=== PATIENT | male | born 1950 | race Hispanic/Latino ===

== ENCOUNTER 2017-12-26 21:32 | Emergency (ER) | payer MEDICARE ==
[~2017-12-26] VITALS: Ht 170.2 cm; Wt 74.8 kg
[2017-12-26] MEDS ORDERED: KETOROLAC TROMETHAMINE 30 MG/ML VIAL IV STA (21:45)
[2017-12-26] MEDS ORDERED: SODIUM CHLORIDE 0.9% 1000ML 1,000 ML IV STA (21:45)
[2017-12-26] MEDS ORDERED: SODIUM CHLORIDE 0.9% 1000ML 1,000 ML ONE (21:46)
[2017-12-26 22:19] LABS: BASOPHILS % 0.5 % (0.0-1.0); EOSINOPHILS # (AUTO) 0.6 (0.0-0.4); HEMATOCRIT 39.6 % (38.2-49.6); HEMOGLOBIN 14.4 g/dL (14.0-18.0); LYMPHOCYTES # (AUTO) 2.2 (1.0-3.2); LYMPHOCYTES % 29.5 % (18.0-39.1); MEAN CORPUSCULAR HEMOGLOBIN 29.7 pg (28-32); MEAN CORPUSCULAR HGB CONC 36.4 g/dL (31-35); MEAN CORPUSCULAR VOLUME 81.6 fL (81-99); MONOCYTES # (AUTO) 0.8 (0.2-0.8); MONOCYTES % 10.5 % (4.4-11.3); NEUTROPHILS # (AUTO) 3.9 (2.1-6.9); NEUTROPHILS % 51.1 % (38.7-80.0); PLATELET COUNT 179 x10e3/uL (140-360); RED BLOOD COUNT 4.85 x10e6/uL (4.3-5.7); RED CELL DISTRIBUTION WIDTH 12.9 % (11.7-14.4)
--- NOTE | 2017-12-26 22:22 | Diagnostic Imaging Report ---
CHEST SINGLE (PORTABLE), 12/26/2017 9:45 PM Technique: CHEST SINGLE (PORTABLE) Comparison: None available. Clinical history: Chest pain Findings: See Impression Impression: 1. Mildly enlarged cardiac silhouette, accentuated by technique. 2. Peripheral left lung opacity suspicious for mass in the absence of signs/symptoms of infection. Recommend CT chest for better evaluation. 3. No pleural effusion or pneumothorax. Signed by: Dr Evi Arellano MD on 12/26/2017 10:18 PM
[2017-12-26 22:35] LABS: ALBUMIN 3.9 g/dL (3.5-5.0); ALBUMIN/GLOBULIN RATIO 1.2 (0.8-2.0); ANION GAP 16.6 mmol/L (8-16); CALCIUM 9.5 mg/dL (8.4-10.2); CREATININE, SERUM 1.25 mg/dL (0.72-1.25); POTASSIUM 3.6 mmol/L (3.5-5.1)
[2017-12-26 22:41] LABS: CREATINE KINASE MB 1.1 ng/mL (0-5.0)
[2017-12-26 23:49] LABS: BILIRUBIN,URINE NEGATIVE (NEGATIVE); CLARITY,URINE CLEAR (CLEAR); COLOR,URINE YELLOW (YELLOW); KETONES,URINE NEGATIVE (NEGATIVE); NITRITE,URINE NEGATIVE (NEGATIVE); PROTEIN,URINE DIPSTICK NEGATIVE (NEGATIVE); URINE UROBILINOGEN 0.2 mg/dL (0.2 - 1)
[2017-12-26 23:51] LABS: EPITHELIAL CELLS,URINE RARE /LPF; LEUKOCYTE ESTERASE ,URINE TRACE (NEGATIVE); MUCUS,URINE MODERATE (RARE); RBC,URINE 0-5 /HPF (0-5)
--- NOTE | 2017-12-27 01:07 | Diagnostic Imaging Report ---
EXAM: CT CHEST WO DATE: 12/27/2017 12:01 AM INDICATION: \S\? PERIPH LEFT LUNG MASS \[id number] \[id number] COMPARISON: None TECHNIQUE: Multidetector CT scanning of the chest was performed. Coronal and sagittal multiplanar reformations were obtained. IV Contrast: 0 ml Isovue 370/300 FINDINGS: LUNGS AND PLEURA: Mild paraseptal emphysema and biapical pleural-parenchymal scarring. Large lobular/spiculated mass of the lingula measuring 3.8 x 2.7 x 4.1 cm abutting the left major fissure and adjacent pleural surface. Indeterminate 7 8-mm left lower lobe nodule (image 97) and left basilar 3 to 4 mm subpleural nodule (image 106). No effusions or pneumothorax. HEART, MEDIASTINUM, VESSELS: Borderline heart size with coronary artery and aortic calcifications. No pericardial effusion. There are several small rounded nodes, the largest measuring 1.3 cm of the AP window on image 42 and superior mediastinal prevascular node measuring 1.1 cm on image 30 and left hilar node measuring 9 mm on image 53. UPPER ABDOMEN: Moderate hiatal hernia.. MUSCULOSKELETAL: No acute findings. IMPRESSION: 1. Left upper lobe mass most compatible with primary lung malignancy. 2. Small rounded mediastinal and left hilar nodes could be metastatic. 3. Two nonspecific left lower lobe nodules. Signed by: Dr Evi Arellano MD on 12/27/2017 1:03 AM
[2017-12-27 01:32] VITALS: BP 165/91
== END 2017-12-27 01:47 | disposition home or self-care (01) ==
LOC: ER 21:32
DX: R52 Pain, unspecified (principal); M79.1 Myalgia; M62.838 Other muscle spasm; C34.12 Malignant neoplasm of upper lobe, left bronchus or lung; I10 Essential (primary) hypertension; I50.9 Heart failure, unspecified; E78.5 Hyperlipidemia, unspecified
CPT/HCPCS: 36415; 71045; 71250; 80053; 81001; 82550; 82553; 84484; 85025; 93005; 99284; J1885; J7030

== ENCOUNTER 2020-07-25 11:45 | Observation (INO) | payer MEDICARE ==
[~2020-07-25] VITALS: Ht 175.3 cm; Wt 71.7 kg
[2020-07-25] MEDS: SODIUM CHLORIDE 0.9% 1000ML 1,000 ML IV SCH ×2 (01:38→17:54)
[2020-07-25] MEDS ORDERED: SODIUM CHLORIDE 0.9% 1000ML 1,000 ML IV STA (11:47)
[2020-07-25] MEDS ORDERED: ONDANSETRON HCL INJ 2MG/ML 2ML 2 MG/ML VIAL IV STA (11:47)
[2020-07-25] MEDS ORDERED: MORPHINE SULFATE INJ 4 MG/ML INJ 1ML IV PRN (12:00)
[2020-07-25 12:08] LABS: BASOPHILS % 0.3 % (0.0-1.0); EOSINOPHILS # (AUTO) 0.3 (0.0-0.4); EOSINOPHILS % 5.3 % (0.0-6.0); HEMATOCRIT 37.8 % (38.2-49.6); HEMOGLOBIN 13.2 g/dL (14.0-18.0); LYMPHOCYTES % 33.3 % (18.0-39.1); MEAN CORPUSCULAR HEMOGLOBIN 31.4 pg (28-32); MEAN CORPUSCULAR HGB CONC 34.9 g/dL (31-35); MEAN CORPUSCULAR VOLUME 89.8 fL (81-99); MONOCYTES # (AUTO) 0.7 (0.2-0.8); MONOCYTES % 10.8 % (4.4-11.3); NEUTROPHILS % 49.8 % (38.7-80.0); PLATELET COUNT 183 x10e3/uL (140-360); RED BLOOD COUNT 4.21 x10e6/uL (4.3-5.7); RED CELL DISTRIBUTION WIDTH 12.7 % (11.7-14.4)
[2020-07-25 12:30] LABS: ALANINE AMINOTRANSFERASE 26 IU/L (0-55); ALBUMIN/GLOBULIN RATIO 1.3 (0.8-2.0); ALKALINE PHOSPHATASE 46 IU/L (40-150); ANION GAP 16.4 mmol/L (8-16); BLOOD UREA NITROGEN 10 mg/dL (7-26); BUN/CREATININE RATIO 11 (6-25); CARBON DIOXIDE 28 mmol/L (22-29); CHLORIDE 97 mmol/L (98-107); CREATINE KINASE 49 IU/L (30-200); CREATININE, SERUM 0.94 mg/dL (0.72-1.25); EST GLOMERULAR FILTRATION RATE > 60 ML/MIN (60-); GLUCOSE 121 mg/dL (74-118); POTASSIUM 3.4 mmol/L (3.5-5.1); SODIUM 138 mmol/L (136-145)
[2020-07-25] MEDS ORDERED: IOPAMIDOL 370 MG/ML 200 ML INFUS..BTL INJ ONE (12:45)
[2020-07-25] MEDS ORDERED: SODIUM CHLORIDE 0.9% 50ML 50 ML ONE (12:45)
[2020-07-25 14:22] VITALS: BP 92/61
[2020-07-25 17:57] VITALS: BP 92/61
[2020-07-25] MEDS ORDERED: FUROSEMIDE40 MG PO (19:49)
[2020-07-25] MEDS ORDERED: AMIODARONE HCL100 MG PO (19:49)
[2020-07-25] MEDS ORDERED: OMEPRAZOLE40 MG PO (19:49)
[2020-07-25] MEDS ORDERED: LATANOPROST2.5 ML OP (19:49)
[2020-07-25] MEDS ORDERED: LISINOPRIL2.5 MG PO (19:49)
[2020-07-25] MEDS ORDERED: CARVEDILOL6.25 MG PO (19:49)
[2020-07-25 20:00] VITALS: BP 135/84
[2020-07-25 21:47] VITALS: BP 135/84
[2020-07-25 23:53] VITALS: BP 155/69
[2020-07-26] VITALS (16 sets, daily range): BP systolic 115–133; BP diastolic 60–80
[2020-07-26] MEDS: SODIUM CHLORIDE 0.9% 1000ML 1,000 ML IV SCH ×3 (01:38→16:59)
[2020-07-26 05:43] LABS: BASOPHILS % 0.3 % (0.0-1.0); EOSINOPHILS # (AUTO) 0.2 (0.0-0.4); EOSINOPHILS % 3.2 % (0.0-6.0); HEMOGLOBIN 11.7 g/dL (14.0-18.0); LYMPHOCYTES % 16.8 % (18.0-39.1); MEAN CORPUSCULAR HEMOGLOBIN 32.4 pg (28-32); MEAN CORPUSCULAR HGB CONC 35.5 g/dL (31-35); MEAN CORPUSCULAR VOLUME 91.4 fL (81-99); MONOCYTES # (AUTO) 0.6 (0.2-0.8); MONOCYTES % 10.3 % (4.4-11.3); NEUTROPHILS # (AUTO) 4.2 (2.1-6.9); NEUTROPHILS % 69.1 % (38.7-80.0); PLATELET COUNT 141 x10e3/uL (140-360); RED BLOOD COUNT 3.61 x10e6/uL (4.3-5.7); RED CELL DISTRIBUTION WIDTH 12.6 % (11.7-14.4)
[2020-07-26 06:21] LABS: ALANINE AMINOTRANSFERASE 21 IU/L (0-55); ALBUMIN 3.2 g/dL (3.5-5.0); ALBUMIN/GLOBULIN RATIO 1.4 (0.8-2.0); ALKALINE PHOSPHATASE 40 IU/L (40-150); ANION GAP 12.4 mmol/L (8-16); BLOOD UREA NITROGEN 7 mg/dL (7-26); BUN/CREATININE RATIO 9 (6-25); CALCIUM 8.1 mg/dL (8.4-10.2); CARBON DIOXIDE 26 mmol/L (22-29); CHLORIDE 104 mmol/L (98-107); CREATININE, SERUM 0.79 mg/dL (0.72-1.25); EST GLOMERULAR FILTRATION RATE > 60 ML/MIN (60-); GLUCOSE 105 mg/dL (74-118); POTASSIUM 3.4 mmol/L (3.5-5.1); SODIUM 139 mmol/L (136-145)
[2020-07-26] MEDS ORDERED: DOCUSATE SODIUM 100 MG CAP PO PRN (09:15)
[2020-07-26] MEDS ORDERED: ZOLPIDEM TARTRATE 5 MG TAB PO PRN (09:15)
[2020-07-26] MEDS ORDERED: ONDANSETRON HCL INJ 2MG/ML 2ML 2 MG/ML VIAL IV PRN (09:15)
[2020-07-26] MEDS ORDERED: ACETAMINOPHEN 325 MG TAB PO PRN (09:15)
[2020-07-26] MEDS ORDERED: CEPHALEXIN 500 MG CAP PO SCH (12:00)
[2020-07-26] MEDS: METRONIDAZOLE 500MG/NS 100ML 100 ML IV SCH ×2 (12:01→21:32)
[2020-07-26] MEDS ORDERED: CEFTRIAXONE SOD 1 GM VIAL IV SCH (16:30)
[2020-07-26] MEDS: CARVEDILOL 12.5 MG TAB PO SCH (16:56)
[2020-07-26] MEDS ORDERED: CEFTRIAXONE SOD 2 GM/NS 100 ML 100 ML IV SCH (17:00)
[2020-07-26] MEDS: CEFTRIAXONE SOD 1 GM in SODIUM CHLORIDE 0.9% 50ML 50 ML IV SCH (18:29)
[2020-07-26 19:41] LABS: CLARITY,URINE CLEAR (CLEAR); COLOR,URINE YELLOW (YELLOW); KETONES,URINE NEGATIVE (NEGATIVE); LEUKOCYTE ESTERASE ,URINE NEGATIVE (NEGATIVE); NITRITE,URINE NEGATIVE (NEGATIVE); PROTEIN,URINE DIPSTICK NEGATIVE (NEGATIVE); URINE UROBILINOGEN 0.2 mg/dL (0.2 - 1)
[2020-07-27] VITALS: BP 107/57
[2020-07-27 00:50] VITALS: BP 107/57
[2020-07-27 04:00] VITALS: BP 131/67
[2020-07-27] MEDS: METRONIDAZOLE 500MG/NS 100ML 100 ML IV SCH (05:27)
[2020-07-27 06:25] LABS: BASOPHILS % 0.2 % (0.0-1.0); EOSINOPHILS # (AUTO) 0.1 (0.0-0.4); EOSINOPHILS % 1.7 % (0.0-6.0); HEMATOCRIT 31.6 % (38.2-49.6); HEMOGLOBIN 11.1 g/dL (14.0-18.0); LYMPHOCYTES % 17.2 % (18.0-39.1); MEAN CORPUSCULAR HEMOGLOBIN 31.7 pg (28-32); MEAN CORPUSCULAR HGB CONC 35.1 g/dL (31-35); MEAN CORPUSCULAR VOLUME 90.3 fL (81-99); MONOCYTES # (AUTO) 0.8 (0.2-0.8); MONOCYTES % 13.9 % (4.4-11.3); NEUTROPHILS # (AUTO) 3.9 (2.1-6.9); NEUTROPHILS % 66.7 % (38.7-80.0); PLATELET COUNT 143 x10e3/uL (140-360); RED CELL DISTRIBUTION WIDTH 12.8 % (11.7-14.4)
[2020-07-27] MEDS: CEFTRIAXONE SOD 1 GM in SODIUM CHLORIDE 0.9% 50ML 50 ML IV SCH (06:25)
[2020-07-27 06:50] LABS: ANION GAP 14.1 mmol/L (8-16); BLOOD UREA NITROGEN 5 mg/dL (7-26); BUN/CREATININE RATIO 6 (6-25); CALCIUM 8.2 mg/dL (8.4-10.2); CARBON DIOXIDE 24 mmol/L (22-29); CHLORIDE 106 mmol/L (98-107); CREATININE, SERUM 0.77 mg/dL (0.72-1.25); EST GLOMERULAR FILTRATION RATE > 60 ML/MIN (60-); GLUCOSE 100 mg/dL (74-118); POTASSIUM 3.1 mmol/L (3.5-5.1); SODIUM 141 mmol/L (136-145)
[2020-07-27] MEDS ORDERED: ZOFRAN4 MG PO (07:02)
[2020-07-27] MEDS ORDERED: FLAGYL500 MG PO (07:02)
[2020-07-27] MEDS ORDERED: KEFLEX125 MG/5 M PO (07:02)
[2020-07-27] MEDS ORDERED: POTASSIUM CHLORIDE 20 MEQ TAB CR PO ONE (07:20)
[2020-07-27 08:00] VITALS: BP_SYST 120; BP_SYST 144; BP_DIAS 61; BP_DIAS 84
[2020-07-27] MEDS ORDERED: ONDANSETRON HCL 4 MG ORAL DISINTEGRATING TAB PO PRN (08:45)
[2020-07-27 08:54] VITALS: BP 131/67
[2020-07-27] MEDS ORDERED: AMIODARONE HCL 200 MG TAB PO SCH (09:00)
[2020-07-27] MEDS ORDERED: PANTOPRAZOLE SOD 40 MG TABEC PO SCH (09:00)
[2020-07-27] MEDS ORDERED: LISINOPRIL 2.5 MG TAB PO SCH (09:00)
[2020-07-27] MEDS: CARVEDILOL 12.5 MG TAB PO SCH (09:05)
== END 2020-07-27 09:25 | disposition home or self-care (01) ==
LOC: ER 11:50 → ERHOLD 13:36 → MED/SURG 14:10
PROVIDERS: ADMIT Internal Medicine; ATTEND Internal Medicine
DX: A04.9 Bacterial intestinal infection, unspecified (principal); E87.6 Hypokalemia; I11.0 Hypertensive heart disease with heart failure; I50.22 Chronic systolic (congestive) heart failure; I48.20 Chronic atrial fibrillation, unspecified; Z95.810 Presence of automatic (implantable) cardiac defibrillator; Z20.822 Contact with and (suspected) exposure to COVID-19; Z91.81 History of falling
CPT/HCPCS: 36415; 71045; 74177; 80048; 80053; 81001; 82550; 82553; 83690; 84484; 85025; 93005; 99284; G0378; J0696; J2270; J2405; J7030; Q9967; U0002